=== PATIENT | female | born 1965 | race Caucasian/White ===

== ENCOUNTER → 2020-10-07 | Outpatient (CLI) | payer OTHER, BC ==
[~2020-10-07] MED LIST: IOHEXOL 240 MG/ML 50ML VIAL. ONE; IOHEXOL 240 MG/ML 50ML VIAL. PO ONE; IOHEXOL 300 MG/ML 75 ML VIAL. IV ONE
--- NOTE | 2020-10-07 17:19 | RAD ---
PA and lateral chest. HISTORY: Fatigue PA and lateral views were taken of the chest. There is no pneumothorax or pleural effusion. Lungs are free of acute infiltrates. Heart is normal in size. There is no pleural effusion. IMPRESSION: 1. No acute infiltrates. Electronically signed by: Ricardo Carrera MD (10/07/2020 5:17 PM) [facility]
--- NOTE | 2020-10-07 18:41 | RAD ---
CT abdomen pelvis with contrast. HISTORY: Abdominal pain, nausea CT abdomen pelvis was done using 75 mL Omnipaque contrast. Lung bases are clear. There is no effusion . There is spurring and disc space narrowing at L5-S1 with foraminal stenosis. There is bulging of th e disc with ligamentous and facet hypertrophy with spinal stenosis at L4-5. A liver lesion is not shari ntified. Spleen and adrenal glands are normal. Pancreas is unremarkable. There is no mass or hydronep hrosis in the kidneys. There is atherosclerotic change in the aorta without an aneurysm. There is mil d/moderate narrowing of the celiac artery. Superior Mesenteric artery is patent. There is moderate st ool in colon. There is no small bowel obstruction. Patient's had an appendectomy. There is diverticul osis of the colon without an acute diverticulitis. Bladder is mildly distended. Patient's had a hyste rectomy. IMPRESSION: 1. Degenerative changes in the lumbar spine. 2. Moderate stool in colon. 3. No bowel obstruction. 4. No abdominal or pelvic mass or other acute finding. PQRS Compliance Statement: One or more of the following individualized dose reduction techniques were utilized for this examinat ion: 1. Automated exposure control 2. Adjustment of the mA and/or kV according to patient size 3. Use of iterative reconstruction technique Electronically signed by: Ricardo Carrera MD (10/07/2020 6:39 PM) [facility]
== END ==
LOC: CT 16:47
PROVIDERS: ATTEND Specialist
DX: R10.9 Unspecified abdominal pain (principal); R53.83 Other fatigue; M47.816 Spondylosis without myelopathy or radiculopathy, lumbar region
CPT/HCPCS: 71046; 74177; Q9966; Q9967

== ENCOUNTER → 2020-12-22 | Outpatient (CLI) | payer OTHER, BC ==
--- NOTE | 2020-12-22 16:18 | RAD ---
EXAM: Pelvis and left hip, 3 views. HISTORY: Pain. COMPARISON: None. FINDINGS: A frontal view of the pelvis and 2 views of the left hip are obtained. There is no fracture , dislocation or subluxation. The femoral heads are normal in configuration. There is degenerative en dplate remodeling and disc space narrowing predominantly at the lumbosacral junction. There are few b enign bone islands. IMPRESSION: No acute osseous finding. Electronically signed by: Yessica Sin MD (12/22/2020 4:16 PM) [id number]
--- NOTE | 2020-12-22 16:38 | RAD ---
EXAM: Chest CT low dose lung cancer screening without intravenous contrast. HISTORY: Lung cancer screening. TECHNIQUE: Computed tomographic images of the chest were obtained without contrast. Multiplanar refor matting was performed. *One or more of the following individualized dose reduction techniques were utilized for this examina tion: 1. Automated exposure control. 2. Adjustment of the mA and/or kV according to patient size. 3. Use of iterative reconstruction technique. COMPARISON: None. FINDINGS: There is pulmonary emphysema with biapical pleural parenchymal scarring. There is no infilt rate, pleural effusion or pneumothorax. There is posterior dependent and basilar atelectasis. There i s a calcified granuloma within the posterior right upper lobe. There is a 6 mm noncalcified nodule wi thin the left upper lobe (series 5, image 84). The heart is normal in size. There is no lymphadenopat hy. There are calcified right paratracheal and precarinal lymph nodes. There is no acute finding invo lving the visualized upper abdomen. There are postoperative changes involving the stomach. There is n o suspicious osseous lesion. There are thoracic disc protrusions and disc osteophyte complexes superi mposed on endplate remodeling. There are several endplate Schmorl's nodes. IMPRESSION: 1. 6 mm left upper lobe pulmonary nodule. Lung RADS category 2: 12 month follow-up is recommended. 2. Pulmonary emphysema with biapical predominant pleural parenchymal scarring. Electronically signed by: Yessica Sin MD (12/22/2020 4:36 PM) [id number]
== END ==
LOC: CT 15:23
PROVIDERS: ATTEND Specialist
DX: Z12.2 Encounter for screening for malignant neoplasm of respiratory organs (principal); R91.1 Solitary pulmonary nodule; J43.9 Emphysema, unspecified; F17.200 Nicotine dependence, unspecified, uncomplicated
CPT/HCPCS: 71271; 73502

== ENCOUNTER → 2021-09-17 | Outpatient (CLI) | payer OTHER ==
--- NOTE | 2021-09-17 17:23 | RAD ---
PA and lateral chest. HISTORY: Short of breath PA and lateral views of the chest were compared with a prior study from September 2020. There is a granul marek on the right. There are no acute infiltrates. There is no pleural effusion. There is been no sign ificant change. Heart is normal in size. IMPRESSION: 1. No acute chest disease. Electronically signed by: Ricardo Carrera MD (09/17/2021 5:21 PM) [facility]
== END ==
LOC: RAD 16:27
PROVIDERS: ATTEND Specialist
DX: J84.10 Pulmonary fibrosis, unspecified (principal)
CPT/HCPCS: 71046